=== PATIENT | male | born 1990 | race Two or more races ===

== ENCOUNTER 2023-01-07 07:46 | Emergency (ER) | payer SELFPAY ==
[~2023-01-07] VITALS: Ht 162.6 cm; Wt 81.8 kg
[2023-01-07] MEDS ORDERED: LIDOCAINE 1% HCL (LOCAL ANESTH.) INJ 20ML MDV IJ ONE (08:30)
[2023-01-07 08:49] VITALS: BP 135/80
[2023-01-07] MEDS ORDERED: IBUP-1456 PO (08:54)
[2023-01-07] MEDS ORDERED: CEPH500C PO (08:54)
[2023-01-07] MEDS ORDERED: TETANUS-DIPTH-ACEL PERTUSSIS 0.5ML SYR Tdap IM ONE (09:00)
== END 2023-01-07 09:12 | disposition home or self-care (01) ==
LOC: ER 07:46
DX: S71.112A Laceration without foreign body, left thigh, initial encounter (principal); W26.0XXA Contact with knife, initial encounter; Y93.89 Activity, other specified; Y92.89 Other specified places as the place of occurrence of the external cause; Y99.8 Other external cause status
CPT/HCPCS: 12002; 90471; 90715; 99283; J2001